=== PATIENT | female | born 1985 | race Caucasian/White ===

== ENCOUNTER 2023-10-02 14:12 | Emergency (ER) | payer BC, MEDICARE ==
[~2023-10-02] VITALS: Ht 170.2 cm; Wt 72.6 kg
[2023-10-02 14:16] VITALS: BP_SYST 117; PULSE 89; RESP 20; TEMP 98.1; O2SAT 10
[2023-10-02 15:36] LABS: INFLUENZA TYPE A NEGATIVE (NEGATIVE); INFLUENZA TYPE B NEGATIVE (NEGATIVE)
[2023-10-02] MEDS ORDERED: AMOX-423 PO (16:14)
[2023-10-02] MEDS ORDERED: GUAI100S14 PO (16:14)
[2023-10-02] MEDS ORDERED: PSEU120T57 PO (16:14)
[2023-10-02 16:36] VITALS: BP_SYST 117; PULSE 89; RESP 20; TEMP 98.1; O2SAT 10
== END 2023-10-02 16:35 | disposition home or self-care (01) ==
LOC: SED 14:12
DX: J01.90 Acute sinusitis, unspecified (principal); Z20.822 Contact with and (suspected) exposure to COVID-19
CPT/HCPCS: 36415; 71045; 99284